=== PATIENT | female | born 1990 | race Caucasian/White ===

== ENCOUNTER 2020-04-18 00:15 | Emergency (ER) | payer OTHER ==
[~2020-04-18 00:15] MED LIST: DICLOFENAC SODI75 MG PO; DIFLUCAN150 MG PO
== END 2020-04-18 01:20 | disposition left against medical advice (07) ==
LOC: FER 00:15
DX: K04.7 Periapical abscess without sinus (principal); Z53.8 Procedure and treatment not carried out for other reasons